=== PATIENT | female | born 1980 | race Caucasian/White ===

== ENCOUNTER 2016-12-02 06:55 | Day surgery (SDC) | payer OTHER ==
[2016-12-02] MEDS ORDERED: PROPOFOL INJ 200 MG/20 ML VIAL IV ONE (07:26)
[2016-12-02 09:11] VITALS: BP 97/75
--- NOTE | 2016-12-02 10:26 | Operative Report ---
Operative Report DATE OF SURGERY: 12/02/16 Operative Report: The risks, benefits and alternatives of the procedure including risks of bleeding, perforation requiring surgery are explained to the patient detail and informed consent is obtained. Patient was brought back to the endoscopy suite and placed in the left, lateral decubital position. Timeout was called. Propofol medications administered. A rectal examination was done which did not reveal any masses, tears or fissures. An Olympus video scope was inserted into the patient's rectum. Scope was then gradually advanced all the way to the cecum. The cecum was identified by the usual anatomical landmarks including the ileocecal valve as well as the appendiceal office. Photodocumentation is obtained. Prep is good. The scope was then sequentially pulled back. The rest segments of the colon including the ascending colon, hepatic flexure, transverse colon, splenic flexure, descending colon and finding to the rectosigmoid portions of the colon. Retroflexion maneuver was performed. The risks benefits and alternatives of the procedure explained to the patient in detail and informed consent is obtained. A GIF Olympus video scope was inserted into the patient's mouth and hypopharynx, the esophagus is identified intubated and insufflated, the scope was then advanced through the esophagus stomach and duodenum, retroflexion maneuver is done ,the esophagus stomach and first and second portions of the duodenum examined PREOPERATIVE DIAGNOSIS: Colorectal cancer screening, history of polyps. Change of bowel habits. Blood in stool. Early satiety, dyspepsia POSTOPERATIVE DIAGNOSIS: Colon polyp, noted in the sigmoid area. Status post ablation. Mild right-sided inflammation status post biopsy. Fundic gland polyps in the stomach status post biopsy. Gastritis status post biopsy to rule out Helicobacter pylori. Hiatal hernia OPERATION: Colonoscopy with snare polypectomy/ablation, since no tissue was obtained. EGD with biopsy SURGEON: JOEY ART ANESTHESIA: LMAC TISSUE REMOVED OR ALTERED: Mucosal specimens in the right colon obtained. Gastric mucosal specimens obtained COMPLICATIONS: None. ESTIMATED BLOOD LOSS: None. INTRAOPERATIVE FINDINGS: As described above. No AVMs or diverticulosis noted. Internal hemorrhoids PROCEDURE: Patient tolerated the procedure well. No immediate postprocedure complications are noted. Patient discharged in good condition. Discharge date 12/02/2016. Discharge diet: Regular. Discharge activity: Regular. 2-3 week follow-up to discuss findings. Patient is instructed to call the office or proceed to the emergency room should it be any further problems or questions. We will wait on biopsies.
== END 2016-12-02 09:11 | disposition home or self-care (01) ==
LOC: END 06:55
PROVIDERS: ATTEND Internal Medicine Gastroenterology
PROC: 0DB68ZX Excision of Stomach, Via Natural or Artificial Opening Endoscopic, Diagnostic (ICD-10-PCS; principal; 2016-12-02 08:00)
PROC: 0DBF8ZX Excision of Right Large Intestine, Via Natural or Artificial Opening Endoscopic, Diagnostic (ICD-10-PCS; 2016-12-02 08:00)
DX: D12.5 Benign neoplasm of sigmoid colon (principal); K52.9 Noninfective gastroenteritis and colitis, unspecified; K92.1 Melena; K29.50 Unspecified chronic gastritis without bleeding; K31.7 Polyp of stomach and duodenum; B96.81 Helicobacter pylori [H. pylori] as the cause of diseases classified elsewhere; K44.9 Diaphragmatic hernia without obstruction or gangrene; K58.9 Irritable bowel syndrome, unspecified; Z79.51 Long term (current) use of inhaled steroids
CPT/HCPCS: 43239; 45380; 45385; 88342 ×2; 88305 ×2; J2704; 810

== ENCOUNTER → 2016-12-11 | Outpatient (CLI) | payer OTHER ==
--- NOTE | 2016-12-11 09:34 | WOMENS IMAGING REPORT ---
EXAM DESCRIPTION: U/S ABDOMEN TOTAL COMPLETED DATE/TIME: 12/11/2016 9:20 am REASON FOR STUDY: U/S ABDOM; R10.11 RUQ PAIN R10.10 UPPER ABDOMINAL PAIN, UNSPECIFIED COMPARISON: None. TECHNIQUE: Dynamic and static grayscale images acquired of the abdomen and recorded on PACS. Additio nal selected color Doppler and spectral images recorded. LIMITATIONS: None. FINDINGS: PANCREAS: No masses. Visualized pancreatic duct normal caliber. LIVER: No masses. Echotexture normal. LIVER VASCULATURE: Normal directional flow of the main portal vein and hepatic veins. GALLBLADDER: Small adherent echogenic focus is demonstrated along the anterior wall. This measures n o more than 2.7 mm. This could represent small adherent stone or polyp. ULTRASOUND-DETECTED SALMERON'S SIGN: Negative. INTRAHEPATIC DUCTS AND COMMON DUCT: CBD and intrahepatic ducts normal caliber. No filling defects. INFERIOR VENA CAVA: Normal flow. AORTA: No aneurysm. RIGHT KIDNEY: Normal size. Normal echogenicity. No solid or suspicious masses. No hydronephros is. No calcifications. LEFT KIDNEY: Normal size. Normal echogenicity. No solid or suspicious masses. No hydronephrosi s. No calcifications. SPLEEN: Normal size. No solid masses. PERITONEAL AND PLEURAL SPACES: No ascites or effusions. OTHER: No other significant finding. IMPRESSION: No acute findings in the abdomen. TECHNICAL DOCUMENTATION: JOB ID: [id number]- All Rights Reserved
== END ==
LOC: RAD 08:36
PROVIDERS: ATTEND Internal Medicine Gastroenterology
DX: R10.11 Right upper quadrant pain (principal)
CPT/HCPCS: 76700

== ENCOUNTER → 2016-12-16 | Outpatient (CLI) | payer OTHER ==
--- NOTE | 2016-12-16 15:36 | RADIOLOGY REPORT (SQ) ---
EXAM DESCRIPTION: NM HIDA SCAN WITH CCK COMPLETED DATE/TIME: 12/16/2016 3:19 pm REASON FOR STUDY: N/V (R11.2) R11.2 NAUSEA WITH VOMITING, UNSPECIFIED COMPARISON: None. RADIONUCLIDE AND DOSE: DOSAGE RADIONUCLIDE: 5 millicuries Tc99m Mebrofenin. DOSAGE CCK: 1.2 micrograms. DOSAGE MORPHINE: Not required. The route of agent administration: Intravenous TECHNIQUE: Serial imaging right upper quadrant up to 60 minutes following injection of radionuclide. CCK injected after gallbladder visualized. LIMITATIONS: None. FINDINGS: LIVER: Normal visualization without areas of photopenia. INTRAHEPATIC BILE DUCTS: Normal size and no delay in visualization. COMMON BILE DUCT: Normal without dilatation. GALLBLADDER: Normal visualization. Calculated ejection fraction of 88%. Normal range is greater th an 35%. PHYSICAL RESPONSE: Patients presenting complaint was reproduced. OTHER: No other significant finding. IMPRESSION: Normal gallbladder ejection fraction. The patient's symptoms were reproduced during inj ection of the CCK. TECHNICAL DOCUMENTATION: JOB ID: [id number] [employer]- All Rights Reserved
== END ==
LOC: RAD 13:00
PROVIDERS: ATTEND Internal Medicine Gastroenterology
DX: R11.2 Nausea with vomiting, unspecified (principal)
CPT/HCPCS: 78227; A9537; Q9969; J2805

== ENCOUNTER → 2017-08-19 | Outpatient (CLI) | payer OTHER ==
--- NOTE | 2017-08-19 09:03 | RADIOLOGY REPORT (SQ) ---
EXAM DESCRIPTION: U/S ABDOMEN LIMITED W/O DOP COMPLETED DATE/TIME: 08/19/2017 8:43 am REASON FOR STUDY: GALLBLADDER POLYP (K82.4) K82.4 CHOLESTEROLOSIS OF GALLBLADDER COMPARISON: None. TECHNIQUE: Dynamic and static grayscale images acquired of the abdomen and recorded on PACS. Additio nal selected color Doppler and spectral images recorded. LIMITATIONS: None. FINDINGS: PANCREAS: No abnormality seen. LIVER: The liver is normal in size measuring 13.7 cm demonstrating normal echogenicity. LIVER VASCULATURE: Normal directional flow of the main portal vein and hepatic veins. GALLBLADDER: Normal. No evidence of gallbladder polyp. Gallbladder wall normal measuring 2.3 mm. ULTRASOUND-DETECTED SALMERON'S SIGN: Negative. INTRAHEPATIC DUCTS AND COMMON DUCT: Common bile duct normal measuring 1.2 mm. INFERIOR VENA CAVA: Normal flow. AORTA: The proximal abdominal aorta measures 1.6 in AP diameter. The mid abdominal aorta measures 1 .5 cm in AP diameter. The distal abdominal aorta measures 1.6 cm in AP diameter RIGHT KIDNEY: The right kidney is normal in size measuring 10.2 cm. Demonstrating normal echogenici ty. No hydronephrosis. Normal Doppler flow. IMPRESSION: NORMAL RIGHT UPPER QUADRANT ULTRASOUND. TECHNICAL DOCUMENTATION: JOB ID: [id number] [employer]- All Rights Reserved
== END ==
LOC: RAD 08:13
PROVIDERS: ATTEND Surgery
DX: K82.4 Cholesterolosis of gallbladder (principal)
CPT/HCPCS: 76705

== ENCOUNTER 2019-03-02 14:56 | Emergency (ER) | payer OTHER ==
[2019-03-02] MEDS ORDERED: ASPIRIN 81 MG TABLET, CHEWABLE PO ONE (15:32)
--- NOTE | 2019-03-02 15:37 | ER Document Report ---
ED Medical Screen (RME) - General Chief Complaint: Shortness Of Breath Stated Complaint: SHORTNESS OF BREATH Time Seen by Provider: 03/02/19 15:31 Primary Care Provider: LASHONDA WYNNE MD [Primary Care Provider] - Follow up as needed Information source: Patient Notes: Patient presents complaining of cough shortness of breath and chest pain that she describes as a heaviness for the past 2 and half weeks. Patient denies any fever. Patient denies any bedrest immobilization or recent long distance travel. Patient does complain of a sedentary job that she sits up for 9 hours a day. I have greeted and performed a rapid initial assessment of this patient. A comprehensive ED assessment and evaluation of the patient, analysis of test results and completion of the medical decision making process will be conducted by additional ED providers. TRAVEL OUTSIDE OF THE [place] IN LAST 30 DAYS: No - Related Data Allergies/Adverse Reactions: DYE Adverse Reaction (Severe, Uncoded 03/02/19 14:57) Tachycardia Past Medical History - Past Medical History Cardiac Medical History: Denies: Hx Coronary Artery Disease, Hx Heart Attack Comment Only: Hx Hypertension - OCCASSSIONAL RUNS LOWER Pulmonary Medical History: Reports: Hx Pneumonia Denies: Hx Asthma, Hx Bronchitis, Hx COPD Neurological Medical History: Denies: Hx Cerebrovascular Accident, Hx Seizures Musculoskeltal Medical History: Denies Hx Arthritis Past Surgical History: Reports: Hx Gynecologic Surgery, Hx Tonsillectomy - Immunizations Hx Diphtheria, Pertussis, Tetanus Vaccination: No Physical Exam - Vital signs Vitals: Temp Pulse Resp BP Pulse Ox 98.3 F 100 18 110/61 96 03/02/19 15:12 03/02/19 15:12 03/02/19 15:12 03/02/19 15:12 03/02/19 15:12 - Cardiovascular Rhythm: Regular Heart sounds: S1 appreciated, S2 appreciated Course - Vital Signs Vital signs: Temp Pulse Resp BP Pulse Ox 98.3 F 100 18 110/61 96 03/02/19 15:12 03/02/19 15:12 03/02/19 15:12 03/02/19 15:12 03/02/19 15:12 Doctor's Discharge - Discharge Referrals: LASHONDA WYNNE MD [Primary Care Provider] - Follow up as needed
--- NOTE | 2019-03-02 16:32 | RADIOLOGY REPORT (SQ) ---
EXAM DESCRIPTION: CHEST 2 VIEWS COMPLETED DATE/TIME: 03/02/2019 4:19 pm REASON FOR STUDY: cough,CP, sob COMPARISON: Two-view chest 04/22/2015, 10/01/2014 CT chest 04/22/2015 EXAM PARAMETERS: NUMBER OF VIEWS: two views TECHNIQUE: Digital Frontal and Lateral radiographic views of the chest acquired. RADIATION DOSE: NA LIMITATIONS: none FINDINGS: LUNGS AND PLEURA: No opacities, masses or pneumothorax. No pleural effusion. MEDIASTINUM AND HILAR STRUCTURES: No masses or contour abnormalities. HEART AND VASCULAR STRUCTURES: Heart normal size. No evidence for failure. BONES: No acute findings. HARDWARE: None in the chest. OTHER: No other significant finding. IMPRESSION: NO ACUTE RADIOGRAPHIC FINDING IN THE CHEST. TECHNICAL DOCUMENTATION: JOB ID: [id number] [employer]- All Rights Reserved Reading location - IP/workstation name: [email or web address]
[2019-03-02 16:34] LABS: ABSOLUTE BASOPHILS # (AUTO) 0.1 10^3/uL (0.0-0.2); ABSOLUTE EOSINOPHILS # (AUTO) 0.2 10^3/uL (0.0-0.6); ABSOLUTE LYMPHOCYTES (AUTO) 1.1 10^3/uL (0.5-4.7); ABSOLUTE MONOCYTES (AUTO) 0.5 10^3/uL (0.1-1.4); EOSINOPHILS % (AUTO) 2.8 % (0-6); HEMOGLOBIN 13.4 g/dL (12.0-15.5); LYMPHOCYTES % (AUTO) 19.3 % (13-45); MEAN CORPUSCULAR HGB CONC 34.3 g/dL (32.0-36.0); MEAN CORPUSCULAR VOLUME 91 fl (80-97); MONOCYTES % (AUTO) 8.8 % (3-13); PLATELET COUNT 258 10^3/uL (150-450); RED BLOOD COUNT 4.31 10^6/uL (3.72-5.28); RED CELL DISTRIBUTION WIDTH 12.9 % (11.5-14.0); SEGMENTED NEUTROPHILS % (AUTO) 68.1 % (42-78); TOTAL CELLS COUNTED % (AUTO) 100 %; WHITE BLOOD COUNT 5.9 10^3/uL (4.0-10.5)
[2019-03-02 16:51] LABS: ALBUMIN 4.7 g/dL (3.5-5.0); ALKALINE PHOSPHATASE 46 U/L (38-126); ANION GAP 10 (5-19); ASPARTATE AMINO TRANSFERASE 24 U/L (14-36); BILIRUBIN,DIRECT 0.3 mg/dL (0.0-0.4); BILIRUBIN,TOTAL 0.5 mg/dL (0.2-1.3); BLOOD UREA NITROGEN 7 mg/dL (7-20); CALCIUM 9.7 mg/dL (8.4-10.2); CARBON DIOXIDE 27 mmol/L (22-30); CHLORIDE 102 mmol/L (98-107); GLUCOSE 86 mg/dL (75-110); POTASSIUM 4.1 mmol/L (3.6-5.0); TOTAL PROTEIN 7.5 g/dL (6.3-8.2)
--- NOTE | 2019-03-02 18:38 | ER Document Report ---
ED General - General Chief Complaint: Shortness Of Breath Stated Complaint: SHORTNESS OF BREATH Time Seen by Provider: 03/02/19 15:31 Primary Care Provider: LASHONDA WYNNE MD [ACTIVE STAFF] - Follow up as needed Notes: Patient is a 39-year-old female that presents to the emergency department for chief complaint of cough and some shortness of breath. Patient reports she is been having a dry cough for the past few weeks now, she said similar symptoms to this in the past when her ferritin levels were low, she is needed iron transfusions in the past, she received chemotherapy remotely, for cervical cancer, and it caused some bone marrow suppression, leading to low ferritin levels, and she is needed these iron transfusions which seem to help in the past. She is also worried she may have a bronchitis or pneumonia, and initially went to urgent care but they advised her to come to the emergency department to be evaluated first. She states she is had some chest pressure and heaviness, but not worse with exertion or better with rest, denies any radiation of the pain, denies any nausea, vomiting, diaphoresis. Denies any family history of early coronary disease and is a non-smoker. Past Medical History: Iron deficiency anemia, remote history of cervical cancer Past Surgical History: Cervical conization, LEEP Social History: Denies tobacco, illicit drug use, admits to social alcohol use. Family History: Reviewed and noncontributory for presenting illness Allergies: Reviewed, see documented allergy list. REVIEW OF SYSTEMS: Other than noted above, the 12 point review of systems was reviewed with the patient and were negative, all pertinent findings are included in the HPI. PHYSICAL EXAMINATION: Vital signs reviewed, nursing noted reviewed. GENERAL: Well-appearing, well-nourished and in no acute distress. HEAD: Atraumatic, normocephalic. EYES: Eyes appear normal, extraocular movements intact, sclera anicteric, conjunctiva are normal. ENT: nares patent, oropharynx clear without exudates. Moist mucous membranes. NECK: Normal range of motion, supple without lymphadenopathy LUNGS: Breath sounds clear to auscultation bilaterally and equal. No wheezes rales or rhonchi. However dry cough noted on exam. HEART: Regular rate and rhythm without murmurs ABDOMEN: Soft, nontender, normoactive bowel sounds. No rebound, guarding, or rigidity. No masses appreciated. EXTREMITIES: Nontender, good range of motion, no pitting or edema. NEUROLOGICAL: No focal neurological deficits. Moves all extremities spontaneously Motor and sensory grossly intact on exam. PSYCH: Normal mood, normal affect. SKIN: Warm, Dry, normal turgor, no rashes or lesions noted on exposed skin TRAVEL OUTSIDE OF THE [place] IN LAST 30 DAYS: No - Related Data Allergies/Adverse Reactions: DYE Adverse Reaction (Severe, Uncoded 03/02/19 14:57) Tachycardia Past Medical History - General Information source: Patient - Social History Smoking Status: Never Smoker Frequency of alcohol use: Occasional Drug Abuse: None Family History: None Patient has suicidal ideation: No Patient has homicidal ideation: No - Past Medical History Cardiac Medical History: Denies: Hx Coronary Artery Disease, Hx Heart Attack Comment Only: Hx Hypertension - OCCASSSIONAL RUNS LOWER Pulmonary Medical History: Reports: Hx Pneumonia Denies: Hx Asthma, Hx Bronchitis, Hx COPD Neurological Medical History: Denies: Hx Cerebrovascular Accident, Hx Seizures Musculoskeletal Medical History: Denies Hx Arthritis Past Surgical History: Reports: Hx Gynecologic Surgery, Hx Tonsillectomy - Immunizations Hx Diphtheria, Pertussis, Tetanus Vaccination: No Physical Exam - Vital signs Vitals: Temp Pulse Resp BP Pulse Ox 98.3 F 100 18 110/61 96 03/02/19 15:12 03/02/19 15:12 03/02/19 15:12 03/02/19 15:12 03/02/19 15:12 Course - Re-evaluation Re-evalutation: Patient seen and examined vital signs reviewed. Laboratory data and/or imaging were ordered as appropriate for the patient's presenting symptoms and complaint, with consideration of any critical or life threatening conditions that may be associated with their obtained history and exam as noted above. Results were reviewed when available and demonstrated unremarkable blood work, negative d-dimer, negative troponin, EKG demonstrated nonischemic pattern, and chest x-ray negative. The patient was re-evaluated and was stable, not hypoxic, Evaluation was most consistent with cough, possible bronchitis, patient states she is responded to prednisone in the past, will also prescribe her an albuterol inhaler. Given negative d-dimer, and clinical history, not suspicious for pulmonary embolism, no leg swelling, history of DVT or PE, no recent surgeries, do not feel need to pursue CT angiogram after a negative d-dimer. Results were discussed with the patient at this point, after careful consideration I feel that that patient can be discharged from the emergency department, the patient was educated treatments and reasons to return to the emergency department based on their presumed diagnosis as noted above, they were advised to followup with a primary care physician in 2-3 days. Patient was agreeable to plan of care. *Note is created using voice recognition software and may contain spelling, syntax or grammatical errors. Laboratory 03/02/19 03/02/19 03/02/19 16:11 16:11 16:11 WBC 5.9 RBC 4.31 Hgb 13.4 Hct 39.0 MCV 91 MCH 31.0 MCHC 34.3 RDW 12.9 Plt Count 258 Lymph % (Auto) 19.3 Amador % (Auto) 8.8 Eos % (Auto) 2.8 Baso % (Auto) 1.0 Absolute Neuts (auto) 4.0 Absolute Lymphs (auto) 1.1 Absolute Monos (auto) 0.5 Absolute Eos (auto) 0.2 Absolute Basos (auto) 0.1 Seg Neutrophils % 68.1 D-Dimer 0.27 Sodium 139.1 Potassium 4.1 Chloride 102 Carbon Dioxide 27 Anion Gap 10 BUN 7 Creatinine 0.51 L Est GFR ( Amer) > 60 Est GFR (MDRD) Non-Af > 60 Glucose 86 Calcium 9.7 Total Bilirubin 0.5 Direct Bilirubin 0.3 Neonat Total Bilirubin Not Reportable Neonat Direct Bilirubin Not Reportable Neonat Indirect Bili Not Reportable AST 24 ALT 13 Alkaline Phosphatase 46 Troponin I Total Protein 7.5 Albumin 4.7 03/02/19 16:11 WBC RBC Hgb Hct MCV MCH MCHC RDW Plt Count Lymph % (Auto) Amador % (Auto) Eos % (Auto) Baso % (Auto) Absolute Neuts (auto) Absolute Lymphs (auto) Absolute Monos (auto) Absolute Eos (auto) Absolute Basos (auto) Seg Neutrophils % D-Dimer Sodium Potassium Chloride Carbon Dioxide Anion Gap BUN Creatinine Est GFR ( Amer) Est GFR (MDRD) Non-Af Glucose Calcium Total Bilirubin Direct Bilirubin Neonat Total Bilirubin Neonat Direct Bilirubin Neonat Indirect Bili AST ALT Alkaline Phosphatase Troponin I < 0.012 Total Protein Albumin Chest X-Ray 03/02/19 15:32 IMPRESSION: NO ACUTE RADIOGRAPHIC FINDING IN THE CHEST. - Vital Signs Vital signs: Temp Pulse Resp BP Pulse Ox 98.3 F 100 18 110/61 96 03/02/19 15:12 03/02/19 15:12 03/02/19 15:12 03/02/19 15:12 03/02/19 15:12 - Laboratory Result Diagrams: 03/02/19 16:11 03/02/19 16:11 Laboratory results interpreted by me: 03/02/19 16:11 Creatinine 0.51 L - EKG Interpretation by Me Additional EKG results interpreted by me: EKG demonstrates borderline sinus tachycardia with a ventricular rate of 101 bpm, normal axis, QTC 462 ms, no evidence of acute ischemia. This is compared with the prior EKG from 04/22/2015, without significant change. Discharge - Discharge Clinical Impression: Cough Condition: Stable Disposition: HOME, SELF-CARE Instructions: Bronchitis ([facility]) Additional Instructions: Please take the complete course of prednisone, you have also been prescribed an albuterol inhaler, you can use this for 2 puffs, every 4-6 hours if needed. Prescriptions: Albuterol Sulfate [Albuterol Sulfate Hfa] 2 puff IH Q4H PRN #1 inhaler PRN Reason: cough or shortness of breath Prednisone 40 mg PO DAILY #20 tablet Referrals: BIJAL ROA MD [ACTIVE STAFF] - Follow up in 3-5 days
[2019-03-02 19:10] VITALS: BP 104/58
--- NOTE | 2019-03-02 19:11 | EKG REPORT ---
SEVERITY:- OTHERWISE NORMAL ECG - SINUS TACHYCARDIA : Confirmed by: Segundo Lovell MD 02-Mar-2019 19:10:21
== END 2019-03-02 19:09 | disposition home or self-care (01) ==
LOC: ER 14:56
DX: R05 Cough (principal); R06.02 Shortness of breath; Z85.41 Personal history of malignant neoplasm of cervix uteri
CPT/HCPCS: 36415; 71046; 80053; 84484; 85025; 85379; 93005; 93010; 99284

== ENCOUNTER 2019-09-28 07:31 | Day surgery (SDC) | payer OTHER ==
[~2019-09-28 07:31] MED LIST: PROPOFOL INJ 200 MG/20 ML VIAL IV ONE
[2019-09-28] MEDS ORDERED: DIPHENHYDRAMINE HCL 50 MG/ML VIAL IV PRN (09:59)
[2019-09-28] MEDS ORDERED: ONDANSETRON HCL INJ/PF 4 MG/2 ML SDV IV PRN (09:59)
--- NOTE | 2019-09-28 10:23 | Operative Report ---
Operative Report DATE OF SURGERY: 09/28/19 Operative Report: The risks benefits and alternatives of the procedure explained to the patient in detail and informed consent is obtained.A GIF Olympus video scope was inserted into the patient's mouth and hypopharynx, the esophagus is identified intubated and insufflated, the scope was then advanced through the esophagus stomach and duodenum, retroflexion maneuver is done, the esophagus stomach and first and second portions of the duodenum examined PREOPERATIVE DIAGNOSIS: Epigastric pain rule out peptic ulcer disease POSTOPERATIVE DIAGNOSIS: Duodenitis status post biopsy without celiac disease. Gastritis status post biopsy rule out Helicobacter pylori. Small gastric erosion. Benign gastric polyps likely fundic gland OPERATION: EGD with biopsy SURGEON: JOEY ART ANESTHESIA: LMAC TISSUE REMOVED OR ALTERED: As noted above. COMPLICATIONS: None. ESTIMATED BLOOD LOSS: None. INTRAOPERATIVE FINDINGS: As noted above. PROCEDURE: Patient tolerated the procedure well. No immediate postprocedure complications are noted. Patient is discharged in good condition. Discharge date 09/28/2019. Discharge diet: Regular. Discharge activity regular. 2 to 3-week follow-up to discuss findings. Patient is instructed to call the office or proceed to the emergency room should there be any further problems or questions. Wait on the pathology.
[2019-09-28] MEDS ORDERED: PROMETHAZINE HCL INJ 25 MG/1 ML VIAL INJ PRN (11:00)
[2019-09-28] MEDS ORDERED: SIMETHICONE 80 MG TAB.CHEW PO PRN (11:00)
[2019-09-28] MEDS ORDERED: ACETAMINOPHEN 325 MG TABLET PO PRN (11:00)
[2019-09-28 11:40] VITALS: BP 103/69
== END 2019-09-28 11:35 | disposition home or self-care (01) ==
LOC: OROUT 07:31
PROVIDERS: ATTEND Internal Medicine Gastroenterology
DX: K29.80 Duodenitis without bleeding (principal); K29.50 Unspecified chronic gastritis without bleeding; K25.9 Gastric ulcer, unspecified as acute or chronic, without hemorrhage or perforation; K31.7 Polyp of stomach and duodenum; K58.9 Irritable bowel syndrome, unspecified; Z79.51 Long term (current) use of inhaled steroids
CPT/HCPCS: 43239; 88305 ×2; 00731; J2704; 731